=== PATIENT | female | born 1970 | race Two or more races ===

== ENCOUNTER 2022-10-30 09:53 | Day surgery (SDC) | payer OTHER ==
[~2022-10-30] VITALS: Ht 160 cm; Wt 122.5 kg
[2022-10-30] MEDS ORDERED: LIDOCAINE 2% 100 MG/5 ML UJET TP ONE (11:28)
[2022-10-30] MEDS ORDERED: fentaNYL citrate 0.05 MG/ML VIAL ONE (11:28)
[2022-10-30] MEDS ORDERED: fentaNYL citrate 0.05 MG/ML VIAL IVP ONE (12:35)
== END 2022-10-30 12:36 | disposition home or self-care (01) ==
LOC: MDS 09:53 → MMU 09:53 → MDS 12:36
PROVIDERS: ATTEND Internal Medicine Gastroenterology
DX: Z12.11 Encounter for screening for malignant neoplasm of colon (principal); D12.5 Benign neoplasm of sigmoid colon; D12.8 Benign neoplasm of rectum; K64.9 Unspecified hemorrhoids; I10 Essential (primary) hypertension; Z80.0 Family history of malignant neoplasm of digestive organs; Z79.899 Other long term (current) drug therapy; Z98.51 Tubal ligation status
CPT/HCPCS: 45385; J3010